=== PATIENT | female | born 1970 | race Caucasian/White ===

== ENCOUNTER 2016-11-17 08:48 | Emergency (ER) | payer OTHER ==
[2016-11-17 08:59] VITALS: BP 139/90
--- NOTE | 2016-11-17 09:35 | UC ---
Chelsy Oro Alfonso, scribed for Scooter Mejia MD on 11/17/16 at 0918 . Allergic Reaction HPI - HPI Summary HPI Summary: This patient is a 46 year old F presenting to [facility] with a chief complaint of left forearm rash since two days ago. She reports it is a reaction secondary to being stung while gardening by a little back bug. The rash is worsening. The CC is described as pruritic, throbbing, burning, blistering and swelling. The patient rates the pain 8/10 in severity. Symptoms alleviated by nothing. Patient denies SOB. Patients medications reviewed this visit. - History of Current Complaint Chief Complaint: UCSkin Stated Complaint: RASH Time Seen by Provider: 11/17/16 09:04 Hx Obtained From: Patient Hx Last Menstrual Period: 11/06/16 Onset/Duration: Sudden Onset, Lasting Days - 2, Worse Since Severity Initially: Moderate Severity Currently: Moderate Pain Intensity: 8 Pain Scale Used: 0-10 Numeric Location: Discrete @ - left forearm Character: Swelling, Pruritus, Pain Alleviating Factor(s): Nothing Associated Signs And Symptoms: Positive: Negative - Allergies/Home Medications Allergies/Adverse Reactions: Allergies Allergy/AdvReac Type Severity Reaction Status Date / Time Nickel Allergy SKIN Verified 11/17/16 09:00 IRRITATION DAIRY INTOLERANCE Allergy Unknown Uncoded 11/17/16 09:00 Reaction Details SILK Allergy SKIN Uncoded 11/17/16 09:00 IRRITATION Home Medications: Home Medications Eluxadoline [Viberzi] 100 mg PO 11/17/16 [History] PMH/Surg Hx/FS Hx/Imm Hx Endocrine History: Dyslipidemia - Surgical History Surgical History: Yes Surgery Procedure, Year, and Place: EXPLORATORY LAPAROSCOPY- - Family History Known Family History: Positive: Cardiac Disease - Social History Alcohol Use: Occasionally Alcohol Amount: 1-2 DRINKS PER WEEK Substance Use Type: None Smoking Status (MU): Never Smoked Tobacco Review of Systems Skin: Rash - left forearm. Respiratory: Other - Negative SOB. All Other Systems Reviewed And Are Negative: Yes Physical Exam Triage Information Reviewed: Yes Vital Signs: Initial Vital Signs Temp 97.6 F 11/17/16 08:55 Pulse 79 11/17/16 08:55 Resp 16 11/17/16 08:55 BP 139/90 11/17/16 08:55 Pulse Ox 100 08/28/17 08:55 Vital Signs Reviewed: Yes - Additional Comments The patient is well-nourished in no acute distress and in no acute pain. The skin is warm and dry and skin color reflects adequate perfusion. 14x12 cm erythematous rash at the dorsum of the left forearm. Not circumferential. Vesicular area in the center. Neurovascular intact. Neck is supple with full range of motion and non-tender. There are no carotid bruits. There is no neck vein distension. Respiratory: Chest is non-tender. Lungs are clear to auscultation and breath sounds are symmetrical and equal. Cardiovascular: Heart is regular rate and rhythm. There is no murmur or rub auscultated. Pulses are symmetrical and equal. Musculoskeletal: There is no back pain noted. Extremities are non-tender with full range of motion. There is good capillary refill. There is no peripheral edema or calf tenderness elicited. Neurological: Patient is alert and oriented to person, place and time. The patient has symmetrical motor strength in all four extremities. Cranial nerves are grossly intact. Psychiatric: The patient has an appropriate affect. Allergic Reaction Course/Dx - Course Course Of Treatment: This patient is a 46 year old F presenting to [facility] with a chief complaint of left forearm rash since two days ago. She reports I was stung while gardening by a little back bug. The rash is worsening. The CC is described as pruritic, throbbing, burning, blistering and swelling. The patient rates the pain 8/10 in severity. Symptoms alleviated by nothing. Patient denies SOB. Patients medications reviewed this visit. Pt instructed to FOLLOW UP WITH PRIMARY CARE PROVIDER WITHIN 4 WEEKS FOR HIGH BLOOD PRESSURE NOTED TODAY AT 139/ 90. Patient will be discharged with prescription for Pepcid and prednisone, and follow up from PCP. She will continue taking Claritin. The patient is agreeable with this plan. - Differential Dx/Diagnosis Differential Diagnosis/HQI/PQRI: Anaphylaxis, Local Allergic Reaction, Other - cellulitis Provider Diagnoses: Localized allergic reaction. Discharge - Discharge Plan Condition: Stable Disposition: HOME Prescriptions: Famotidine TAB 40 MG(NF) [Pepcid TAB 40 MG(NF)] 40 mg PO DAILY #30 tab predniSONE TAB* [Deltasone TAB*] 10 mg PO DAILY #39 tab Patient Education Materials: Insect Bite or Sting (ED) Referrals: Ellie Fam MD [Primary Care Provider] - 1 Week Additional Instructions: FOLLOW UP WITH YOUR PRIMARY CARE PROVIDER WITHIN 4 WEEKS FOR HIGH BLOOD PRESSURE NOTED TODAY AT 139/90. THIS DOES NOT MEAN YOU HAVE HYPERTENSION. The documentation as recorded by the Chelsy mckeon Alfonso accurately reflects the service I personally performed and the decisions made by me, Scooter Mejia MD.
== END 2016-11-17 09:30 | disposition home or self-care (01) ==
LOC: UCEAST 08:48
DX: T63.481A Toxic effect of venom of other arthropod, accidental (unintentional), initial encounter (principal); R21 Rash and other nonspecific skin eruption; Y92.096 Garden or yard of other non-institutional residence as the place of occurrence of the external cause; E78.5 Hyperlipidemia, unspecified
CPT/HCPCS: 99212; G0463

== ENCOUNTER 2017-08-03 15:14 | Emergency (ER) | payer OTHER ==
[2017-08-03 16:16] LABS: ABS Basophils 0.1 10^3/ul (0-0.2); ABS Eosinophils 0.2 10^3/ul (0-0.6); ABS Lymphocytes 1.4 10^3/ul (1.0-4.8); ABS Monocytes 0.6 10^3/ul (0-0.8); ABS Nucleated RBC 0 10^3/ul; Eosinophil % 2.7 % (0-6); Hematocrit 40 % (35-47); Hemoglobin 13.5 g/dl (12.0-16.0); Lymphocyte % 19.7 % (25-47); Mean Corpuscular HGB Conc 34 g/dl (31-36); Mean Corpuscular Hemoglobin 29 pg (27-31); Mean Corpuscular Volume 86 fL (80-97); Mean Platelet Volume 7.6 um3 (7.4-10.4); Nucleated Red Blood Cells % 0; Platelet Count 320 10^3/ul (150-450); Red Blood Count 4.67 10^6/ul (4.0-5.4); Red Cell Distribution Width 14 % (10.5-15); White Blood Count 7.2 10^3/ul (3.5-10.8)
[2017-08-03 16:41] LABS: EGFR Non-African American 62.1 (>60)
[2017-08-03 18:46] VITALS: BP 138/67
--- NOTE | 2017-08-03 18:55 | ED ---
Rashad Oro Jennifer, scribed for Garrte Christensen MD on 08/03/17 at 1535 . Syncope/Near Syncope - HPI Summary HPI Summary: The patient is a 46 y/o F who presents with near syncope today. The patient reports she was sitting at a meeting when her ears began ringing, and her head felt full and like it was closing in. Her symptoms worsened over time until she projectile vomited and began shaking. She reports she is a little shaky now but feels better in the ED. The patient reports she was taking Zithromax two weeks ago for a sinus infection. - History Of Current Complaint Time Seen by Provider: 08/03/17 15:26 Hx Obtained From: Patient Onset/Duration: Sudden Onset, Still Present Timing: Intermittent Episode Lasting - 1 Context: Witnessed Activity At Onset: Other - Sitting at meeting Associated Head Trauma: No Aggravating Factor(s): Nothing Alleviating Factor(s): Nothing Associated Signs And Symptoms: Other - near syncope, ringing ears, head felt full, vomiting, shaking - Allergies/Home Medications Allergies/Adverse Reactions: Allergies Allergy/AdvReac Type Severity Reaction Status Date / Time lactose Allergy GI Upset Verified 08/03/17 15:37 nickel Allergy Hives Verified 08/03/17 15:37 silk Allergy Hives Verified 08/03/17 15:37 Home Medications: Home Medications Cyanocobalamin (Vitamin B-12) [Vitamin B-12] 1 tab PO DAILY 08/03/17 [History Confirmed 08/03/17] Fluoxetine HCl [Prozac] 40 mg PO DAILY 08/03/17 [History Confirmed 08/03/17] Multivitamins/Minerals TAB* [Theragran/minerals TAB*] 1 tab PO DAILY 08/03/17 [ History Confirmed 08/03/17] PMH/Surg Hx/FS Hx/Imm Hx Endocrine/Hematology History: Denies: Hx Diabetes, Hx Thyroid Disease Cardiovascular History: Denies: Hx Hypertension Respiratory History: Denies: Hx Asthma, Hx Chronic Obstructive Pulmonary Disease (COPD) GI History: Reports: Hx Gastroesophageal Reflux Disease - HEARTBURN - DIET RELATED, Hx Irritable Bowel - CONTROLLED WITH DIET Denies: Hx Ulcer Sensory History: Reports: Hx Contacts or Glasses - GLASSES Denies: Hx Hearing Aid Opthamlomology History: Reports: Hx Contacts or Glasses - GLASSES Neurological History: Reports: Hx Headaches - IF CATCHES BEFORE GOING INTO A MIGRAINE, Hx Migraine - TX WITH EXCEDRINE MIGRAINE- REST Psychiatric History: Reports: Hx Anxiety - ON MEDICATION FOR, Hx Depression - ON MEDICATION FOR - Cancer History Hx Chemotherapy: No Hx Radiation Therapy: No - Surgical History Surgery Procedure, Year, and Place: EXPLORATORY LAPAROSCOPY- Hx Anesthesia Reactions: No Infectious Disease History: Denies: Hx Hepatitis, Hx Human Immunodeficiency Virus (HIV) - Family History Known Family History: Positive: Cardiac Disease - Social History Alcohol Use: Occasionally Alcohol Amount: 1-2 DRINKS PER WEEK Substance Use Type: Reports: None Smoking Status (MU): Never Smoked Tobacco Review of Systems ENT: Other - Tinnitus Positive: Vomiting Neurological: Other - Head "felt full", shaking Positive: Syncope - Near syncope All Other Systems Reviewed And Are Negative: Yes Physical Exam - Summary Physical Exam Summary: Appearance: The patient is well-nourished in no acute distress and in no acute pain. Skin: The skin is warm and dry and skin color reflects adequate perfusion. HEENT: The head is normocephalic and atraumatic. The pupils are equal and reactive. The conjunctivae are clear and without drainage. Nares are patent and without drainage. Mouth reveals moist mucous membranes and the throat is without erythema and exudate. The external ears are intact. The ear canals are patent and without drainage. The tympanic membranes are intact. Neck: the neck is supple with full range of motion and non-tender. There are no carotid bruits. There is no neck vein distension. Respiratory: Chest is non-tender. Lungs are clear to auscultation and breath sounds are symmetrical and equal. Cardiovascular: Heart is regular rate and rhythm. There is no murmur or rub auscultated. There is no peripheral edema and pulses are symmetrical and equal. Abdomen: The abdomen is soft and non-tender. There are normal bowel sounds heard in all four quadrants and there is no organomegaly palpated. Musculoskeletal: There is no back tenderness noted. Extremities are non-tender with full range of motion. There is good capillary refill. There is no peripheral edema or calf tenderness elicited. Neurological: Patient is alert and oriented to person, place and time. The patient has symmetrical motor strength in all four extremities. Cranial nerves are grossly intact. Deep tendon reflexes are symmetrical and equal in all four extremities. Psychiatric: The patient has an appropriate affect and does not exhibit any anxiety or depression. Triage Information Reviewed: Yes Vital Signs On Initial Exam: Initial Vitals Temp Pulse Resp BP Pulse Ox 99.2 F 78 17 158/94 98 08/03/17 15:27 08/03/17 15:27 08/03/17 15:27 08/03/17 15:27 08/03/17 15:27 Vital Signs Reviewed: Yes Diagnostics - Vital Signs Vital Signs Temp Pulse Resp BP Pulse Ox 08/03/17 18:45 98.0 F 75 14 138/67 98 08/03/17 18:00 14 08/03/17 17:31 73 16 106/77 97 08/03/17 17:13 96 08/03/17 17:01 78 12 118/81 97 08/03/17 17:00 74 15 96 08/03/17 16:32 77 25 89/58 98 08/03/17 16:00 78 15 97 08/03/17 15:32 84 16 98 08/03/17 15:27 99.2 F 78 17 158/94 98 - Laboratory Lab Results: Lab Results 08/03/17 08/03/17 08/03/17 Range/Units 16:06 16:06 16:06 WBC 7.2 (3.5-10.8) 10^3/ul RBC 4.67 (4.0-5.4) 10^6/ul Hgb 13.5 (12.0-16.0) g/dl Hct 40 (35-47) % MCV 86 (80-97) fL MCH 29 (27-31) pg MCHC 34 (31-36) g/dl RDW 14 (10.5-15) % Plt Count 320 (150-450) 10^3/ul MPV 7.6 (7.4-10.4) um3 Neut % (Auto) 68.5 (38-83) % Lymph % (Auto) 19.7 L (25-47) % Bonner % (Auto) 7.7 H (0-7) % Eos % (Auto) 2.7 (0-6) % Baso % (Auto) 1.4 (0-2) % Absolute Neuts (auto) 5.0 (1.5-7.7) 10^3/ul Absolute Lymphs (auto) 1.4 (1.0-4.8) 10^3/ul Absolute Monos (auto) 0.6 (0-0.8) 10^3/ul Absolute Eos (auto) 0.2 (0-0.6) 10^3/ul Absolute Basos (auto) 0.1 (0-0.2) 10^3/ul Absolute Nucleated RBC 0 10^3/ul Nucleated RBC % 0 Sodium 138 L (139-145) mmol/L Potassium 4.0 (3.5-5.0) mmol/L Chloride 103 (101-111) mmol/L Carbon Dioxide 27 (22-32) mmol/L Anion Gap 8 (2-11) mmol/L BUN 11 (6-24) mg/dL Creatinine 0.97 H (0.51-0.95) mg/dL Est GFR ( Amer) 79.9 (>60) Est GFR (Non-Af Amer) 62.1 (>60) BUN/Creatinine Ratio 11.3 (8-20) Glucose 104 H (70-100) mg/dL Lactic Acid 0.8 (0.5-2.0) mmol/L Calcium 9.3 (8.6-10.3) mg/dL Magnesium 2.3 (1.9-2.7) mg/dL Total Bilirubin 0.40 (0.2-1.0) mg/dL AST 16 (13-39) U/L ALT 12 (7-52) U/L Alkaline Phosphatase 42 (34-104) U/L Troponin I 0.00 (<0.04) ng/mL Total Protein 7.4 (6.4-8.9) g/dL Albumin 4.7 (3.2-5.2) g/dL Globulin 2.7 (2-4) g/dL Albumin/Globulin Ratio 1.7 (1-3) TSH 5.52 (0.34-5.60) mcIU/mL Beta HCG, Quant < 0.60 mIU/mL 08/03/17 Range/Units 17:59 WBC (3.5-10.8) 10^3/ul RBC (4.0-5.4) 10^6/ul Hgb (12.0-16.0) g/dl Hct (35-47) % MCV (80-97) fL MCH (27-31) pg MCHC (31-36) g/dl RDW (10.5-15) % Plt Count (150-450) 10^3/ul MPV (7.4-10.4) um3 Neut % (Auto) (38-83) % Lymph % (Auto) (25-47) % Bonner % (Auto) (0-7) % Eos % (Auto) (0-6) % Baso % (Auto) (0-2) % Absolute Neuts (auto) (1.5-7.7) 10^3/ul Absolute Lymphs (auto) (1.0-4.8) 10^3/ul Absolute Monos (auto) (0-0.8) 10^3/ul Absolute Eos (auto) (0-0.6) 10^3/ul Absolute Basos (auto) (0-0.2) 10^3/ul Absolute Nucleated RBC 10^3/ul Nucleated RBC % Sodium (139-145) mmol/L Potassium (3.5-5.0) mmol/L Chloride (101-111) mmol/L Carbon Dioxide (22-32) mmol/L Anion Gap (2-11) mmol/L BUN (6-24) mg/dL Creatinine (0.51-0.95) mg/dL Est GFR ( Amer) (>60) Est GFR (Non-Af Amer) (>60) BUN/Creatinine Ratio (8-20) Glucose (70-100) mg/dL Lactic Acid (0.5-2.0) mmol/L Calcium (8.6-10.3) mg/dL Magnesium (1.9-2.7) mg/dL Total Bilirubin (0.2-1.0) mg/dL AST (13-39) U/L ALT (7-52) U/L Alkaline Phosphatase (34-104) U/L Troponin I 0.00 (<0.04) ng/mL Total Protein (6.4-8.9) g/dL Albumin (3.2-5.2) g/dL Globulin (2-4) g/dL Albumin/Globulin Ratio (1-3) TSH (0.34-5.60) mcIU/mL Beta HCG, Quant mIU/mL Result Diagrams: 08/03/17 16:06 08/03/17 16:06 Lab Statement: Any lab studies that have been ordered have been reviewed, and results considered in the medical decision making process. - EKG 1552 Cardiac Rate: NL EKG Rhythm: Sinus Rhythm - 76 BPM EKG Interpretation: Left axis deviation Course/Dx Course Of Treatment: Ms. Henley presented with what sounds like a classic vasovagal reaction, near syncope and vomiting with relief after. Her W/U including a delayed troponin was negative. - Diagnoses Provider Diagnoses: Syncope Discharge - Sign-Out/Discharge Documenting (check all that apply): Discharge/Admit/Transfer - Discharge Plan Condition: Stable Disposition: HOME Patient Education Materials: Syncope (ED) Referrals: Ellie Fam MD [Primary Care Provider] - Additional Instructions: Follow up with your primary care physician in three days. Return to the emergency department for any new or worsening symptoms. - Billing Disposition and Condition Condition: STABLE Disposition: HOME The documentation as recorded by the Rashad mckeon Jennifer accurately reflects the service I personally performed and the decisions made by me, Garret Christensen MD.
== END 2017-08-03 18:45 | disposition home or self-care (01) ==
LOC: ED 15:14
DX: R55 Syncope and collapse (principal); R11.10 Vomiting, unspecified
CPT/HCPCS: 36415; 80053; 83605; 83735; 84443; 84484; 84702; 85025; 93005; 99282

== ENCOUNTER 2017-12-03 12:47 | Emergency (ER) | payer OTHER ==
[2017-12-03 13:01] VITALS: BP 122/86
--- NOTE | 2017-12-03 13:32 | UC ---
Throat Pain/Nasal Wilver HPI - HPI Summary HPI Summary: 47 yo female presents with sinus pain/pressure/congestion. She tells me that her symptoms began mildly about 5 days ago. She has been taking nyquill/ dayquill with no relief. Has a hx of sinus infections a few times a year - per pt. Denies fever, chills, cough, SOB. - History of Current Complaint Chief Complaint: UCGeneralIllness Stated Complaint: SORE THROAT, AND COUGH Time Seen by Provider: 12/03/17 13:27 Hx Obtained From: Patient Hx Last Menstrual Period: 11/04/17 Onset/Duration: Gradual Onset Severity: Moderate Pain Intensity: 6 Pain Scale Used: 0-10 Numeric - Allergies/Home Medications Allergies/Adverse Reactions: Allergies Allergy/AdvReac Type Severity Reaction Status Date / Time lactose Allergy GI Upset Verified 12/03/17 13:01 nickel Allergy Hives Verified 12/03/17 13:01 silk Allergy Hives Verified 12/03/17 13:01 PMH/Surg Hx/FS Hx/Imm Hx Psychological History: Anxiety, Depression - Surgical History Surgical History: Yes Surgery Procedure, Year, and Place: EXPLORATORY LAPAROSCOPY- - Family History Known Family History: Positive: Cardiac Disease - Social History Occupation: Employed Full-time Lives: With Family Alcohol Use: Occasionally Alcohol Amount: 1-2 DRINKS PER WEEK Substance Use Type: None Smoking Status (MU): Never Smoked Tobacco Review of Systems Constitutional: Negative Skin: Negative Eyes: Negative ENT: Nasal Discharge, Sinus Congestion, Sinus Pain/Tenderness Respiratory: Negative Cardiovascular: Negative Gastrointestinal: Negative Neurovascular: Negative Neurological: Negative Psychological: Negative All Other Systems Reviewed And Are Negative: Yes Physical Exam - Summary Physical Exam Summary: GENERAL: NAD. WDWN. No pain distress. SKIN: No rashes, sores, lesions, or open wounds. HEENT: Head: AT/NC Eyes: EOM intact. Conjunctiva clear without inflammation or discharge. Ears: Hearing grossly normal. TMs intact, no bulging, erythema, or edema. Nose: Nasal mucosa mildly swollen and erythematous with clear discharge. TTP maxillary and frontal sinus. Throat: Posterior oropharynx without exudates, erythema, or tonsillar enlargement. Uvula midline. NECK: Supple. Nontender. No lymphadenopathy. CHEST: CTAB. No r/r/w. No accessory muscle use. Breathing comfortably and in no distress. CV: RRR. Without m/r/g. Pulses intact. NEURO: Alert. PSYCH: Age appropriate behavior. Triage Information Reviewed: Yes Vital Signs: Initial Vital Signs Temp 98 F 12/03/17 12:59 Pulse 87 12/03/17 12:59 Resp 18 12/03/17 12:59 BP 122/86 12/03/17 12:59 Pulse Ox 100 12/03/17 12:59 Vital Signs Reviewed: Yes Throat Pain/Nasal Course/Dx - Course Course Of Treatment: Sinusitis - Differential Dx/Diagnosis Provider Diagnoses: Sinusitis Discharge - Sign-Out/Discharge Documenting (check all that apply): Patient Departure All imaging exams completed and their final reports reviewed: No Studies - Discharge Plan Condition: Stable Disposition: HOME Prescriptions: Azithromycin TAB* [Zithromax TAB (Z-MARIZOL) 250 mg #6 tabs] 2 tab PO .TODAY, THEN 1 DAILY #1 marizol Patient Education Materials: Sinusitis (ED) Forms: *Work Release Referrals: Ellie Fam MD [Primary Care Provider] - Additional Instructions: If you develop a fever, shortness of breath, chest pain, new or worsening symptoms - please call your PCP or go to the ED. - Billing Disposition and Condition Condition: STABLE Disposition: Home
== END 2017-12-03 13:55 | disposition home or self-care (01) ==
LOC: UCEAST 12:47
DX: J32.9 Chronic sinusitis, unspecified (principal)
CPT/HCPCS: 99212; G0463